=== PATIENT | female | born 1950 | race Caucasian/White ===

== ENCOUNTER 2018-01-03 10:25 | Observation (INO) | payer MEDICARE ==
--- NOTE | 2018-01-03 10:37 | C.PDOC ---
History Of Present Illness 67 year old female presents to the ED complaining of sharp mid chest pain that began 4 days ago. Reports that pain resolved without treatment but came back today for 10 minutes and it was associated with shortness of breath. Patient states she is currently asymptomatic. She denies any palpitations, cough, nausea, vomiting, diaphoresis, fever, chills, or any other symptoms. Chief Complaint (Nursing): Chest Pain History Per: Patient History/Exam Limitations: no limitations Onset/Duration Of Symptoms: Days Current Symptoms Are (Timing): Still Present Associated Symptoms: denies: Nausea, Diaphoresis Past Medical History Reviewed: Historical Data, Nursing Documentation, Vital Signs - Medical History PMH: HTN, Hypercholesterolemia Denies: Chronic Kidney Disease Other Surgeries: Hx of surgeries Family History: States: No Known Family Hx - Social History Hx Tobacco Use: No Hx Alcohol Use: No Hx Substance Use: No - Immunization History Hx Tetanus Toxoid Vaccination: No Hx Influenza Vaccination: No Hx Pneumococcal Vaccination: No Review Of Systems Except As Marked, All Systems Reviewed And Found Negative. Constitutional: Negative for: Fever, Chills, Sweats Cardiovascular: Positive for: Chest Pain. Negative for: Palpitations Respiratory: Positive for: Shortness of Breath. Negative for: Cough Gastrointestinal: Negative for: Nausea, Vomiting Physical Exam - Physical Exam Appears: Non-toxic, No Acute Distress Skin: Warm, Dry, No Rash Head: Normacephalic Eye(s): bilateral: Normal Inspection Nose: Normal Oral Mucosa: Moist Chest: Symmetrical Cardiovascular: Rhythm Regular, No Murmur Respiratory: Normal Breath Sounds, No Rales, No Rhonchi, No Wheezing Gastrointestinal/Abdominal: Soft, No Tenderness Neurological/Psych: Oriented x3, Normal Speech Gait: Steady ED Course And Treatment - Laboratory Results Result Diagrams: 01/03/18 11:34 01/03/18 11:34 ECG: Interpreted By Me, Viewed By Ga ECG Rhythm: Sinus Bradycardia ECG Interpretation: No Acute Changes Rate From EC O2 Sat by Pulse Oximetry: 98 (RA) Pulse Ox Interpretation: Normal - Radiology CXR: Interpreted by Me CXR Interpretation: Yes: No Acute Disease Progress Note: The first set of cardiac enzymes - neg, DDimer negative. Plan: call PMD for observation. - Physician Consult Information Physician Contacted: Jace Hale Outcome Of Conversation: Will admit to tele for observation, requested Cardiology consult with . Disposition - Disposition Disposition: HOSPITALIZED Disposition Time: 13:46 Condition: FAIR - Clinical Impression Clinical Impression: Chest pain - PA / [employer] / Resident Statement MD/DO has reviewed & agrees with the documentation as recorded. - Scribe Statement The provider has reviewed the documentation as recorded by the Scribe Marian Richter All medical record entries made by the Deniseibe were at my direction and personally dictated by me. I have reviewed the chart and agree that the record accurately reflects my personal performance of the history, physical exam, medical decision making, and the department course for this patient. I have also personally directed, reviewed, and agree with the discharge instructions and disposition. Decision To Admit - Pt Status Changed To: Hospital Disposition Of: Observation - . Bed Request Type: Telemetry Admitting Physician: Jace Hale Patient Diagnosis: Chest pain
[2018-01-03 11:40] LABS: BASO % 0.8 % (0.0-2.0); EOS # 0.1 K/uL (0.0-0.7); EOS % 2.2 % (0.0-4.0); HEMOGLOBIN 11.7 g/dL (11.0-16.0); LYMPH # 2.2 K/uL (1.0-4.3); LYMPH % 39.5 % (20.0-40.0); MEAN CELL VOLUME 92.1 fL (81.0-99.0); MEAN CORPUSCULAR HEMOGLOBIN 31.8 pg (27.0-31.0); MEAN CORPUSCULAR HGB CONC 34.5 g/dL (33.0-37.0); MEAN PLATELET VOLUME 8.3 fL (7.2-11.7); MONO # 0.4 K/uL (0.0-0.8); MONO % 7.8 % (0.0-10.0); NEUT # 2.8 K/uL (1.8-7.0); NEUT % 49.7 % (50.0-75.0); NRBC % 0.1 % (0.0-2.0); RBC 3.67 Mil/uL (3.80-5.20); WHITE BLOOD COUNT 5.7 K/uL (4.8-10.8)
[2018-01-03 11:55] LABS: INR 1.1; PARTIAL THROMBOPLASTIN TIME 36 SECONDS (21-34); PROTHROMBIN TIME 11.9 SECONDS (9.7-12.2)
[2018-01-03 11:59] LABS: ALB/GLOB RATIO 1.4 (1.0-2.1); ALBUMIN 4.5 g/dL (3.5-5.0); ALT/SGPT 25 U/L (9-52); AST/SGOT 24 U/L (14-36); BLOOD UREA NITROGEN 17 mg/dL (7-17); CALCIUM 8.9 mg/dl (8.6-10.4); GFR NON-AFRICAN AMERICAN > 60
[2018-01-03 12:08] LABS: CK-MB 0.77 ng/mL (0.0-3.38)
[2018-01-03 12:10] LABS: D DIMER < 200 ng/mlDDU (0-243)
[2018-01-03 12:20] LABS: URINE BILIRUBIN NEGATIVE (NEGATIVE); URINE BLOOD NEGATIVE (NEGATIVE); URINE CLARITY Clear (Clear); URINE COLOR Straw (YELLOW); URINE GLUCOSE (UA) NORMAL (Normal); URINE LEUKOCYTE ESTERASE NEG Leu/uL (Negative); URINE PROTEIN NEGATIVE (NEGATIVE); URINE UROBILINOGEN NORMAL mg/dL (0.2-1.0)
--- NOTE | 2018-01-03 18:12 | RAD ---
Date of service: 01/03/2018 PROCEDURE: CHEST RADIOGRAPH, 1 VIEW HISTORY: pain COMPARISON: 07/22/2015 FINDINGS: LUNGS: Clear. PLEURA: No pneumothorax or pleural fluid seen. CARDIOVASCULAR: No aortic atherosclerotic calcification present. Normal. OSSEOUS STRUCTURES: No significant abnormalities. VISUALIZED UPPER ABDOMEN: Normal. OTHER FINDINGS: None. IMPRESSION: No active disease.
[2018-01-03 19:47] LABS: CK-MB 0.59 ng/mL (0.0-3.38)
[2018-01-04 03:44] LABS: BASO # 0.1 K/uL (0.0-0.2); BASO % 1.3 % (0.0-2.0); EOS # 0.2 K/uL (0.0-0.7); EOS % 2.5 % (0.0-4.0); HEMOGLOBIN 11.4 g/dL (11.0-16.0); LYMPH % 39.8 % (20.0-40.0); MEAN CELL VOLUME 92.4 fL (81.0-99.0); MEAN CORPUSCULAR HEMOGLOBIN 30.6 pg (27.0-31.0); MEAN CORPUSCULAR HGB CONC 33.1 g/dL (33.0-37.0); MONO # 0.6 K/uL (0.0-0.8); MONO % 7.9 % (0.0-10.0); NEUT # 3.6 K/uL (1.8-7.0); NEUT % 48.5 % (50.0-75.0); RBC 3.72 Mil/uL (3.80-5.20); RED CELL DISTRIBUTION WIDTH 13.3 % (11.5-14.5); WHITE BLOOD COUNT 7.5 K/uL (4.8-10.8)
[2018-01-04 03:55] LABS: ALB/GLOB RATIO 1.4 (1.0-2.1); ALBUMIN 4.1 g/dL (3.5-5.0); ALT/SGPT 23 U/L (9-52); AST/SGOT 26 U/L (14-36); BLOOD UREA NITROGEN 18 mg/dL (7-17); CALCIUM 8.7 mg/dl (8.6-10.4); GFR NON-AFRICAN AMERICAN > 60; HDL CHOLESTEROL 47 mg/dL (30-70)
[2018-01-04 04:07] LABS: LDL CHOLESTEROL 103 mg/dL (0-129)
[2018-01-04 09:21] VITALS: RESP 18; TEMP 98; O2SAT 98
[2018-01-04] MEDS ORDERED: Home Med 1 UNIT (Atorvastatin [Lipitor] 20 MG) PO SCH (10:00)
[2018-01-04] MEDS ORDERED: Metoprolol Succinate 25 mg XL Tab PO SCH (10:00)
[2018-01-04] MEDS ORDERED: Enoxaparin 40 mg Syringe SC SCH (10:00)
[2018-01-04 12:06] LABS: CK-MB 0.32 ng/mL (0.0-3.38)
[2018-01-04 12:41] VITALS: BP 126/79; PULSE 78
--- NOTE | 2018-01-04 12:55 | CP.PCM.CON ---
History of Present Illness - History of Present Illness History of Present Illness: I was asked to see patient by Dr Hale Patient seen 01/04/18 [id number] Patient is a 67 year old female with HTN, hyperchoelsterolemia, DM who presents with chest pain. She describes a pressure like sensation in the central chest. This began on Friday, and got progressively worse. The patient was noted to have associated dyspnea. She presents for further evaluation. Review of Systems - Constitutional Constitutional: absent: As Per HPI, Anorexia, Chills, Daytime Sleepiness, Excessive Sweating, Fatigue, Fever, Frequent Falls, Headache, Increased Appetite, Lethargy, Malaise, Night Sweats, Snoring, Sleep Apnea, Weight Gain, Weight Loss, Weakness, Other - EENT Eyes: absent: As Per HPI, Blind Spots, Blurred Vision, Change in Vision, Decreased Night Vision, Diplopia, Discharge, Dry Eye, Exophthalmos, Floaters, Irritation, Itchy Eyes, Loss of Peripheral Vision, Pain, Photophobia, Requires Corrective Lenses, Sees Flashes, Spots in Vision, Tunnel Vision, Other Visual Disturbances, Loss of Vision, Other Ears: absent: As Per HPI, Decreased Hearing, Ear Discharge, Ear Pain, Tinnitus, Abnormal Hearing, Disequilibrium, Dizziness, Other Nose/Mouth/Throat: absent: As Per HPI, Epistaxis, Nasal Congestion, Nasal Discharge, Nasal Obstruction, Nasal Trauma, Nose Pain, Post Nasal Drip, Sinus Pain, Sinus Pressure, Bleeding Gums, Change in Voice, Dental Pain, Dry Mouth, Dysphagia, Halitosis, Hoarsness, Lip Swelling, Mouth Lesions, Mouth Pain, Odynophagia, Sore Throat, Throat Swelling, Tongue Swelling, Facial Pain, Neck Pain, Neck Mass, Other - Breasts Breasts: absent: As Per HPI, Change in Shape, Mass, Pain, Nipple Discharge, Nipple Inversion, Skin Changes, Swelling, Other - Cardiovascular Cardiovascular: Chest Pain, Dyspnea - Respiratory Respiratory: absent: As Per HPI, Cough, Dyspnea, Hemoptysis, Dyspnea on Exertion, Wheezing, Snoring, Stridor, Pain on Inspiration, Chest Congestion, Excessive Mucous Production, Change in Mucous Color, Pain with Coughing, Other - Gastrointestinal Gastrointestinal: absent: As Per HPI, Abdominal Pain, Belching, Bloating, Change in Bowel Habits, Change in Stool Character, Coffee Ground Emesis, Constipation, Cramping, Diarrhea, Dyspepsia, Dysphagia, Early Satiety, Excessive Flatus, Fecal Incontinence, Heartburn, Hematemesis, Hematochezia, Loose Stools, Melena, Nausea, Odynophagia, Temesmus, Vomiting, Other - Genitourinary Genitourinary: absent: As Per HPI, Change in Urinary Stream, Difficulty Urinating, Dysuria, Flank Pain, Hematuria, Pyuria, Nocturia, Urinary Incontinence, Urinary Frequency, Urinary Hesitance, Urinary Urgency, Voiding Freq/Small Amts, Freq UTI, Hx Renal/Bladder Calculi, Hx /Renal Surgery, Bladder Distension, Other - Musculoskeletal Musculoskeletal: absent: As Per HPI, Abnormal Gait, Arthralgias, Atrophy, Back Pain, Deformity, Joint Swelling, Limited Range of Motion, Loss of Height, Muscle Cramps, Muscle Weakness, Myalgias, Neck Pain, Numbness, Radiating Pain into L imb, Stiffness, Tingling, Other - Integumentary Integumentary: absent: As Per HPI, Acne, Alopecia, Bleeding Lesions, Change in Hair, Change in Nails, Change in Pigmentation, Changing Lesions, Dry Skin, Erythema, Furuncle, Hirsutism, Lesions, New Lesions, Non-Healing Lesions, Photosensitivity, Pruritus, Rash, Skin Pain, Skin Ulcer, Sores, Striae, Swelling, Unusual Bruising, Wounds, Jaundice, Other - Neurological Neurological: absent: As Per HPI, Abnormal Gait, Abnormal Hearing, Abnormal Movements, Abnormal Speech, Behavioral Changes, Burning Sensations, Confusion, Convulsions, Disequilibrium, Dizziness, Numbness, Focal Weakness, Frequent Falls, Headaches, Lack of Coordination, Loss of Vision, Memory Loss, Paresthe jamil[place], Radicular Pain, Restless Legs, Sensory Deficit, Syncope, Tingling, Tremor, Vertigo, Weakness, Other Visual Disturbances, Other - Psychiatric Psychiatric: absent: As Per HPI, Abnormal Sleep Pattern, Anhedonia, Anxiety, Auditory Hallucinations, Behavioral Changes, Change in Appetite, Change in Libido, Confusion, Depression, Difficulty Concentrating, Hallucinations, Homicidal Ideation, Hopelessness, Irritability, Memory Loss, Mood Swings, Panic Attacks, Paranoia, Suicidal Ideation, Visual Hallucinations, Tactile Hallucinations, Other - Endocrine Endocrine: absent: As Per HPI, Change in Body Appearance, Change in Libido, Cold Intolorance, Deepening of Voice, Excessive Sweating, Fatigue, Flushing, Heat Intolorance, Increase in Ring/Shoe/Hat Size, Palpitations, Polydipsia, Polyphagia, Polyuria, Other - Hematologic/Lymphatic Hematologic: absent: As Per HPI, Easy Bleeding, Easy Bruising, Lymphadenopathy, Other Past Patient History - Past Medical History & Family History Past Medical History?: Yes - Past Social History Smoking Status: Light Smoker < 10 Cigarettes Daily - CARDIAC Hx Hypercholesterolemia: Yes Hx Hypertension: Yes - PULMONARY Hx Respiratory Disorders: No - NEUROLOGICAL Hx Neurological Disorder: No - HEENT Hx HEENT Problems: No - RENAL Hx Chronic Kidney Disease: No - ENDOCRINE/METABOLIC Hx Diabetes Mellitus Type 2: Yes - HEMATOLOGICAL/ONCOLOGICAL Hx Blood Disorders: No - INTEGUMENTARY Hx Dermatological Problems: No - MUSCULOSKELETAL/RHEUMATOLOGICAL Hx Musculoskeletal Disorders: No Hx Falls: No - GASTROINTESTINAL Hx Gastrointestinal Disorders: No - GENITOURINARY/GYNECOLOGICAL Hx Genitourinary Disorders: No - PSYCHIATRIC Hx Substance Use: No - SURGICAL HISTORY Hx Surgeries: Yes Other/Comment: Alvaro Palencia 2007 - ANESTHESIA Hx Anesthesia: Yes Hx Anesthesia Reactions: No Hx Malignant Hyperthermia: No Meds Allergies/Adverse Reactions: Allergies Allergy/AdvReac Type Severity Reaction Status Date / Time amoxicillin Allergy RASH Verified 01/03/18 10:35 - Medications Medications: Current Medications Aspirin (Aspirin Chewable) 81 mg PO DAILY [facility] Last Admin: 01/04/18 09:36 Dose: 81 mg Enoxaparin Sodium (Lovenox) 40 mg SC DAILY [facility] Last Admin: 01/04/18 09:36 Dose: 40 mg Home Med (Atorvastatin [Lipitor]) 20 mg PO DAILY [facility] Last Admin: 01/04/18 09:36 Dose: 20 mg Lisinopril (Zestril) 10 mg PO DAILY [facility] Last Admin: 01/04/18 09:37 Dose: 10 mg Metoprolol Succinate (Toprol Xl) 25 mg PO DAILY [facility] Last Admin: 01/04/18 09:37 Dose: 25 mg Physical Exam - Constitutional Appears: Non-toxic - Head Exam Head Exam: NORMAL INSPECTION - Eye Exam Eye Exam: Normal appearance - ENT Exam ENT Exam: Mucous Membranes Moist, Normal Exam - Neck Exam Neck exam: Positive for: Full Rom, Normal Inspection. Negative for: Lymphadenopathy, Tenderness - Respiratory Exam Respiratory Exam: Clear to Auscultation Bilateral, NORMAL BREATHING PATTERN - Cardiovascular Exam Cardiovascular Exam: REGULAR RHYTHM - GI/Abdominal Exam GI & Abdominal Exam: Normal Bowel Sounds, Soft - Rectal Exam Rectal Exam: Deferred - Extremities Exam Extremities exam: Positive for: normal inspection. Negative for: pedal edema - Back Exam Back exam: NORMAL INSPECTION - Neurological Exam Neurological exam: Alert, Oriented x3 - Psychiatric Exam Psychiatric exam: Normal Affect - Skin Skin Exam: Normal Color Results - Vital Signs Recent Vital Signs: Last Vital Signs Temp 98 F 01/04/18 12:40 Pulse 78 01/04/18 12:40 Resp 18 01/04/18 12:40 BP 126/79 01/04/18 12:40 Pulse Ox 98 01/04/18 12:40 - Labs Result Diagrams: 01/04/18 03:38 01/04/18 03:38 Labs: Laboratory Results - last 24 hr 01/03/18 01/04/18 01/04/18 19:23 03:38 03:38 WBC 7.5 RBC 3.72 L Hgb 11.4 Hct 34.4 MCV 92.4 MCH 30.6 MCHC 33.1 RDW 13.3 Plt Count 255 MPV 8.0 Neut % (Auto) 48.5 L Lymph % (Auto) 39.8 [place] % (Auto) 7.9 Eos % (Auto) 2.5 Baso % (Auto) 1.3 Neut # (Auto) 3.6 Lymph # (Auto) 3.0 [place] # (Auto) 0.6 Eos # (Auto) 0.2 Baso # (Auto) 0.1 Sodium 140 Potassium 4.0 Chloride 104 Carbon Dioxide 25 Anion Gap 16 BUN 18 H Creatinine 0.7 Est GFR ( Amer) > 60 Est GFR (Non-Af Amer) > 60 Random Glucose 110 H Calcium 8.7 Total Bilirubin 0.6 AST 26 ALT 23 Alkaline Phosphatase 75 Total Creatine Kinase 71 63 CK-MB (Mass) 0.59 0.40 Troponin I < 0.0120 < 0.0120 Total Protein 7.1 Albumin 4.1 Globulin 3.0 Albumin/Globulin Ratio 1.4 Triglycerides 192 H D Cholesterol 174 LDL Cholesterol Direct 103 HDL Cholesterol 47 01/04/18 11:30 WBC RBC Hgb Hct MCV MCH MCHC RDW Plt Count MPV Neut % (Auto) Lymph % (Auto) [place] % (Auto) Eos % (Auto) Baso % (Auto) Neut # (Auto) Lymph # (Auto) [place] # (Auto) Eos # (Auto) Baso # (Auto) Sodium Potassium Chloride Carbon Dioxide Anion Gap BUN Creatinine Est GFR ( Amer) Est GFR (Non-Af Amer) Random Glucose Calcium Total Bilirubin AST ALT Alkaline Phosphatase Total Creatine Kinase 57 CK-MB (Mass) 0.32 Troponin I < 0.0120 Total Protein Albumin Globulin Albumin/Globulin Ratio Triglycerides Cholesterol LDL Cholesterol Direct HDL Cholesterol - EKG Data EKG Interpreted by: Myself EKG shows normal: Sinus rhythm Assessment & Plan (1) Chest pain Assessment and Plan: patient has ruled out for myocardial infarction. EKG reveals normal sinus rhythm. recommend medical therapy and blood pressure control. can d/c home. will schedule outpatient stress test. Status: Acute (2) HTN (hypertension) Assessment and Plan: blood pressure is controlled Status: Acute (3) Diabetes Assessment and Plan: risk factor for CAD. will schedule outpatient stress test Status: Acute
--- NOTE | 2018-01-04 16:33 | CP.PCM.DIS ---
Provider - Provider Date of Admission: 01/03/18 13:41 Attending physician: Jace Hale MD Time Spent in preparation of Discharge (in minutes): 30 Hospital Course - Lab Results Lab Results: Most Recent Lab Values WBC 7.5 K/uL (4.8-10.8) 01/04/18 03:38 RBC 3.72 Mil/uL (3.80-5.20) L 01/04/18 03:38 Hgb 11.4 g/dL (11.0-16.0) 01/04/18 03:38 Hct 34.4 % (34.0-47.0) 01/04/18 03:38 MCV 92.4 fL (81.0-99.0) 01/04/18 03:38 MCH 30.6 pg (27.0-31.0) 01/04/18 03:38 MCHC 33.1 g/dL (33.0-37.0) 01/04/18 03:38 RDW 13.3 % (11.5-14.5) 01/04/18 03:38 Plt Count 255 K/uL (130-400) 01/04/18 03:38 MPV 8.0 fL (7.2-11.7) 01/04/18 03:38 Neut % (Auto) 48.5 % (50.0-75.0) L 01/04/18 03:38 Lymph % (Auto) 39.8 % (20.0-40.0) 01/04/18 03:38 [place] % (Auto) 7.9 % (0.0-10.0) 01/04/18 03:38 Eos % (Auto) 2.5 % (0.0-4.0) 01/04/18 03:38 Baso % (Auto) 1.3 % (0.0-2.0) 01/04/18 03:38 Neut # (Auto) 3.6 K/uL (1.8-7.0) 01/04/18 03:38 Lymph # (Auto) 3.0 K/uL (1.0-4.3) 01/04/18 03:38 [place] # (Auto) 0.6 K/uL (0.0-0.8) 01/04/18 03:38 Eos # (Auto) 0.2 K/uL (0.0-0.7) 01/04/18 03:38 Baso # (Auto) 0.1 K/uL (0.0-0.2) 01/04/18 03:38 PT 11.9 SECONDS (9.7-12.2) 01/03/18 11:34 INR 1.1 01/03/18 11:34 APTT 36 SECONDS (21-34) H 01/03/18 11:34 D-Dimer, Quantitative < 200 ng/mlDDU (0-243) 01/03/18 11:34 Sodium 140 mmol/L (132-148) 01/04/18 03:38 Potassium 4.0 mmol/L (3.6-5.2) 01/04/18 03:38 Chloride 104 mmol/L (98-107) 01/04/18 03:38 Carbon Dioxide 25 mmol/L (22-30) 01/04/18 03:38 Anion Gap 16 (10-20) 01/04/18 03:38 BUN 18 mg/dL (7-17) H 01/04/18 03:38 Creatinine 0.7 mg/dL (0.7-1.2) 01/04/18 03:38 Est GFR ( Amer) > 60 01/04/18 03:38 Est GFR (Non-Af Amer) > 60 01/04/18 03:38 Random Glucose 110 mg/dL (65-105) H 01/04/18 03:38 Calcium 8.7 mg/dl (8.6-10.4) 01/04/18 03:38 Total Bilirubin 0.6 mg/dL (0.2-1.3) 01/04/18 03:38 AST 26 U/L (14-36) 01/04/18 03:38 ALT 23 U/L (9-52) 01/04/18 03:38 Alkaline Phosphatase 75 U/L (38-126) 01/04/18 03:38 Total Creatine Kinase 57 U/L (30-135) 01/04/18 11:30 CK-MB (Mass) 0.32 ng/mL (0.0-3.38) 01/04/18 11:30 Troponin I < 0.0120 ng/mL (0.00-0.120) 01/04/18 11:30 Total Protein 7.1 g/dL (6.3-8.3) 01/04/18 03:38 Albumin 4.1 g/dL (3.5-5.0) 01/04/18 03:38 Globulin 3.0 gm/dL (2.2-3.9) 01/04/18 03:38 Albumin/Globulin Ratio 1.4 (1.0-2.1) 01/04/18 03:38 Triglycerides 192 mg/dL (0-149) H D 01/04/18 03:38 Cholesterol 174 mg/dL (0-199) 01/04/18 03:38 LDL Cholesterol Direct 103 mg/dL (0-129) 01/04/18 03:38 HDL Cholesterol 47 mg/dL (30-70) 01/04/18 03:38 Urine Color Straw (YELLOW) 01/03/18 12:12 Urine Clarity Clear (Clear) 01/03/18 12:12 Urine pH 6.0 (5.0-8.0) 01/03/18 12:12 Ur Specific [place] 1.006 (1.003-1.030) 01/03/18 12:12 Urine Protein Negative mg/dL (NEGATIVE) 01/03/18 12:12 Urine Glucose (UA) Normal mg/dL (Normal) 01/03/18 12:12 Urine Ketones Negative mg/dL (NEGATIVE) 01/03/18 12:12 Urine Blood Negative (NEGATIVE) 01/03/18 12:12 Urine Nitrate Negative (NEGATIVE) 01/03/18 12:12 Urine Bilirubin Negative (NEGATIVE) 01/03/18 12:12 Urine Urobilinogen Normal mg/dL (0.2-1.0) 01/03/18 12:12 Ur Leukocyte Esterase Neg [place]/uL (Negative) 01/03/18 12:12 Urine WBC (Auto) < 1 /hpf (0-5) 01/03/18 12:12 Urine RBC (Auto) < 1 /hpf (0-3) 01/03/18 12:12 - Hospital Course Hospital Course: Patient admitted for observation for chest pain. Cardiac enzymes within normal range. CXR with no active disease. ECG shows no acute abnormalities. [facility] Dr Whitney cleared patient for discharge. Follow up at [facility] for Stress test as outpatient. - Date & Time of H&P Date of H&P: 01/03/18 Time of H&P: 16:34 Discharge Exam - Head Exam Head Exam: NORMAL INSPECTION Discharge Plan - Follow Up Plan Condition: FAIR Disposition: HOME/ ROUTINE Instructions: Chest Pain, Chest Pain That Is Not Caused by the Heart (DC), Chest Pain (DC), Heart Disease in Women (DC), Hypertension (DC), Hypertension (GEN) Referrals: Jace Hale MD [Staff Provider] - Alida Whitney MD [Staff Provider] -
--- NOTE | 2018-01-05 21:17 | CARD ---
APPROVED REPORT Date of service: 01/03/2018 EKG Measurement Heart [id number] ND 150P19 [id number] <Conclusion> Sinus bradycardia Otherwise normal ECG
== END 2018-01-04 12:41 | disposition home or self-care (01) ==
LOC: C.ER 10:25 → C.9E 13:41 → C.6T 01-04 08:14 → C.9E 01-04 08:51 → C.6T 01-04 15:16 → C.9E 01-04 15:16
PROVIDERS: ADMIT Internal Medicine; ATTEND Internal Medicine
DX: R07.89 Other chest pain (principal); E11.9 Type 2 diabetes mellitus without complications; E78.00 Pure hypercholesterolemia, unspecified; I10 Essential (primary) hypertension; F17.210 Nicotine dependence, cigarettes, uncomplicated
CPT/HCPCS: 71045; 80053; 80061; 81001; 82550; 82553; 84484; 85025; 85378; 85610; 85730; 96372; G0378; J1650

== ENCOUNTER 2018-04-28 15:39 | Emergency (ER) | payer MEDICARE ==
[2018-04-28 15:53] VITALS: O2SAT 95
[2018-04-28 19:24] LABS: BASO # 0.1 K/uL (0.0-0.2); EOS # 0.1 K/uL (0.0-0.7); EOS % 1.3 % (0.0-4.0); HEMOGLOBIN 12.4 g/dL (11.0-16.0); LYMPH # 2.8 K/uL (1.0-4.3); LYMPH % 35.5 % (20.0-40.0); MEAN CELL VOLUME 94.3 fL (81.0-99.0); MEAN CORPUSCULAR HEMOGLOBIN 31.3 pg (27.0-31.0); MEAN CORPUSCULAR HGB CONC 33.2 g/dL (33.0-37.0); MEAN PLATELET VOLUME 7.9 fL (7.2-11.7); MONO # 0.4 K/uL (0.0-0.8); MONO % 5.1 % (0.0-10.0); NEUT # 4.5 K/uL (1.8-7.0); NEUT % 57.1 % (50.0-75.0); NRBC % 0.1 % (0.0-2.0); RBC 3.96 Mil/uL (3.80-5.20)
[2018-04-28 19:38] LABS: BLOOD UREA NITROGEN 18 mg/dL (7-17); CALCIUM 9.9 mg/dl (8.6-10.4); GFR NON-AFRICAN AMERICAN > 60
--- NOTE | 2018-04-28 19:39 | C.PDOC ---
History Of Present Illness 67 year old female presents to ED s/p syncopal episode at work. Patient states that she was feeling anxious and dizzy throughout the day. Patient states that she fainted and that her coworker caught her. Patient was confused when she woke up. She denies hitting her head and denies any previous syncopal episodes. Patient continues to have a headache and weakness. She denies nausea and vomiting. Time Seen by Provider: 04/28/18 18:40 Chief Complaint (Nursing): Dizziness/Lightheaded History Per: Patient History/Exam Limitations: no limitations Onset/Duration Of Symptoms: Hrs Current Symptoms Are (Timing): Still Present Activity At Onset Of Symptoms: Standing Seizure Or Post-ictal Symptoms: Post-ictal Period Past Medical History Reviewed: Historical Data, Nursing Documentation, Vital Signs Vital Signs: Last Vital Signs Temp 98.5 F 04/28/18 15:51 Pulse 80 04/28/18 18:00 Resp 20 04/28/18 15:51 BP 148/84 04/28/18 18:00 Pulse Ox 95 04/28/18 15:51 - Medical History PMH: HTN, Hypercholesterolemia Denies: Chronic Kidney Disease Surgical History: No Surg Hx Family History: States: Unknown Family Hx - Social History Hx Tobacco Use: No Hx Alcohol Use: No Hx Substance Use: No - Immunization History Hx Tetanus Toxoid Vaccination: No Hx Influenza Vaccination: No Hx Pneumococcal Vaccination: No Review Of Systems Constitutional: Positive for: Weakness. Negative for: Fever, Chills Gastrointestinal: Negative for: Nausea, Vomiting Neurological: Positive for: Headache, Dizziness. Negative for: Weakness, Numbness Psych: Positive for: Anxiety Physical Exam - Physical Exam Appears: Well, Non-toxic, No Acute Distress Skin: Normal Color, Warm, Dry Head: Atraumatic, Normacephalic Eye(s): bilateral: Normal Inspection, PERRL, EOMI Oral Mucosa: Moist Neck: Normal ROM, Supple Chest: Symmetrical Cardiovascular: Rhythm Regular, No Murmur Respiratory: No Accessory Muscle Use, No Rales, No Rhonchi, No Wheezing Gastrointestinal/Abdominal: Soft, No Tenderness Extremity: Capillary Refill (<2 seconds) Extremity: Bilateral: Atraumatic, Normal Color And Temperature, Normal ROM Pulses: Left Dorsalis Pedis: Normal, Right Dorsalis Pedis: Normal Neurological/Psych: Oriented x3, Normal Speech, Normal Cognition, Normal Cranial Nerves, Normal Motor (5/5), Normal Sensation ED Course And Treatment - Laboratory Results Result Diagrams: 04/28/18 19:21 04/28/18 19:21 O2 Sat by Pulse Oximetry: 95 (in RA) - CT Scan/US Head CT w/ contrast Other Rad Studies (CT/US): Interpreted By Me, Read By Radiologist CT/US Interpretation: Name:MATHIEU DENG Exam Date:Apr 28, 2018 7:36:09 PM EDT. Modality Type:CT\SR. Description:CT - BRAIN. Gender:F Laterality:Not applicable. :48 Referring Physician:Stacey Gillespie MD. EXAM: CT Head without Intravenous Contrast. CLINICAL HISTORY: Syncope. TECHNIQUE: Axial computed tomography images of the head/brain without intravenous contrast. 0.00 mGy-cm. COMPARISON: None provided. FINDINGS: BRAIN. Chronic periventricular and subcortical microvascular disease is seen. VENTRICLES: There is generalized parenchymal atrophy noted as demonstrated by symmetrical dilatation of ventricles and sulci. ORBITS: The orbits are unremarkable. SINUSES AND MASTOIDS: The paranasal sinuses and mastoid air cells are clear. BONES: No fracture. SOFT TISSUES: Unremarkable. MISCELLANEOUS: No acute intracranial pathology. IMPRESSION: 1. There is generalized parenchymal atrophy noted as demonstrated by symmetrical dilatation of ventricles and sulci. 2. Chronic periventricular and subcortical microvascular disease is seen. 3. No acute intracranial pathology. . Electronically signed on Apr 28, 2018 7:50:00 PM EDT by: Slade Jerry M.D., HIMANSHU Certified By ABR & CBCCT. Fellowship Trained MRI and CT Specialist Medical Decision Making Medical Decision Making: Impression: 67 year old female s/p syncopal episode earlier today. Plan: Head CT w/o contrast BMP troponin CBC Tylenol PO MDM: Work up for syncope and dizziness Labs ordered with EKG and Brain CT Reassess patient Re-Evaluation: Patient states that she feels much better. Denies dizziness and headache. Patient is requesting to go home Patient given note for work absence for tomorrow Return parameters discussed Patient's brother will come to pick her up Disposition - Disposition Disposition: HOME/ ROUTINE Disposition Time: 21:40 Condition: IMPROVED Forms: [facility] (Bel[place]ian) - Clinical Impression Clinical Impression: Dizziness, Near syncope
[2018-04-28 21:42] VITALS: BP 118/79; PULSE 62; RESP 18; TEMP 98.3
--- NOTE | 2018-04-29 07:12 | CT ---
Date of service: 04/28/2018 PROCEDURE: CT HEAD WITHOUT CONTRAST. HISTORY: syncope COMPARISON: None available. TECHNIQUE: Axial computed tomography images were obtained through the head/brain without intravenous contrast. Radiation dose: Total exam DLP = 1058.27 mGy-cm. This CT exam was performed using one or more of the following dose reduction techniques: Automated exposure control, adjustment of the mA and/or kV according to patient size, and/or use of iterative reconstruction technique. FINDINGS: HEMORRHAGE: No intracranial hemorrhage. BRAIN: No mass effect or edema. Scattered focal lucencies in the subcortical and periventricular white matter suggestive for chronic microvascular ischemic change. Bilateral basal ganglia calcifications. Diffuse generalized parenchymal atrophy. VENTRICLES: Unremarkable. No hydrocephalus. CALVARIUM: Unremarkable. PARANASAL SINUSES: Unremarkable as visualized. No significant inflammatory changes. MASTOID AIR CELLS: Unremarkable as visualized. No inflammatory changes. OTHER FINDINGS: None. IMPRESSION: No acute intracranial abnormality. If symptoms persists, consider correlation with MRI. A preliminary report was generated at 7:50 p.m. on 04/28/[address] Slade Jerry from [employer] ([place]).
== END 2018-04-28 22:10 | disposition home or self-care (01) ==
LOC: C.ER 15:39
DX: R55 Syncope and collapse (principal); R42 Dizziness and giddiness